=== PATIENT | female | born 1995 | race Caucasian/White ===

== ENCOUNTER 2019-03-24 13:12 | Emergency (ER) | payer MEDICAID ==
[~2019-03-24] VITALS: Ht 158.8 cm; Wt 63.5 kg
[~2019-03-24 13:12] MED LIST: MAGN400T11 PO; PREN-385 PO
[2019-03-24 13:19] VITALS: BP 125/69
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
[2019-03-24] MEDS ORDERED: traMADol 50 MG TAB PO ONE (14:20)
[2019-03-24] MEDS ORDERED: KETOROLAC 60 MG/2 ML VIAL IM ONE (14:20)
--- NOTE | 2019-03-24 14:42 | NUR ---
PT TAKEN TO RADIOLOGY AT THIS TIME
[2019-03-24 15:54] VITALS: BP 132/55
== END 2019-03-24 15:53 | disposition home or self-care (01) ==
LOC: MED 13:12
DX: S33.5XXA Sprain of ligaments of lumbar spine, initial encounter (principal); Z79.899 Other long term (current) drug therapy; V43.52XA Car driver injured in collision with other type car in traffic accident, initial encounter; Y93.89 Activity, other specified; Y92.89 Other specified places as the place of occurrence of the external cause; Y99.8 Other external cause status
CPT/HCPCS: 72100; 81025; 96372; 99283; J1885; Q0092